=== PATIENT | male | born 1975 | race Hispanic/Latino ===

== ENCOUNTER 2016-06-03 13:07 | Emergency (ER) | payer OTHER ==
[2016-06-03 13:23] VITALS: TEMP 97.8
[2016-06-03] MEDS ORDERED: IBUPROFEN 200 MG TAB PO ONE (13:38)
--- NOTE | 2016-06-03 13:59 | RAD ---
Three view left fourth finger. Indication: LACERATION TO L RING FINGER Comparison: None. Impression: Laceration of the radial margin of the distal left fourth finger without radiopaque foreign body or fracture. Electronically signed by: Kaleb Gamble MD 06/03/2016 1:57 PM WORKDAY CONSULTANT
--- NOTE | 2016-06-03 14:06 | ED.PDOC ---
History of Present Illness - General Chief Complaint: Laceration Stated Complaint: finger laceration Time Seen by Provider: 06/03/16 13:37 Source: patient Exam Limitations: no limitations - History of Present Illness Initial Comments: 41 YO MALE PRESENTS TO THE ED WITH L 4TH DIGIT LACERATION SECONDARY TO A SCREW. PT DENIES ANY POSSIBILITY OF SUB CUTANEOUS FB. Timing/Duration: just prior to arrival Severity: mild Location: hands Improving Factors: nothing Worsening Factors: nothing Associated Symptoms: denies symptoms Allergies/Adverse Reactions: Allergies NO KNOWN ALLERGY Allergy (Verified 06/03/16 13:24) Home Medications: Ambulatory Orders Amoxicillin & Pot Clavulanate [Augmentin] 875 mg PO BID #20 tab 06/03/16 Review of Systems - Review of Systems Constitutional: Denies: chills, fever Musculoskeletal: Denies: joint pain, joint swelling Skin: Denies: lesions, rash Hematologic/Lymphatic: Denies: easy bleeding, easy bruising Past Medical History (General) - Patient Medical History Hx Asthma: No Hx Hypertension: No Hx Diabetes: No Surgical History: no surgical history - Vaccination History Hx Tetanus, Diphtheria Vaccination: - unknown Hx Influenza Vaccination: No - Social History Hx Tobacco Use: No Family Medical History - Family History Mother Family History: Unknown Living Status: Unknown Physical Exam - Physical Exam General Appearance: Alert, No apparent distress Eyes, Ears, Nose, Throat Exam: normal ENT inspection Neurologic: alert, normal mood/affect, oriented x 3 Skin Exam: warm/dry, normal color Skin Problem Location: upper extremities - 2CM LACERATION TO THE MEDIAL ASPECT OF THE L DISTAL 4TH DIGIT, NO ACTIVE BLEEDING, FLEXOR AND EXTENSOR TENDON FUNCTION INTACT Procedures - Laceration/Wound Repair Left Medial Distal Finger Wound Length (cm): 2 Wound's Depth, Shape: irregular Wound Explored: no foreign body removed Betadine Prep?: Yes Anesthesia: 1% Lidocaine Wound Repaired With: sutures Suture Size/Type: 4:0, nylon Number of Sutures: 4 Sterile Dressing Applied?: Yes Departure - Departure Clinical Impression: Puncture wound, Laceration Time of Disposition: 15:11 Disposition: Discharge to Home or Self Care Condition: Good Departure Forms: ED Discharge - Pt. Copy, Patient Portal Self Enrollment Instructions: DI for Puncture Wound, DI for Laceration Repair -- Simple Diet: resume usual diet Prescriptions: Amoxicillin & Pot Clavulanate [Augmentin] 875 mg PO BID #20 tab Home Medications: Ambulatory Orders Amoxicillin & Pot Clavulanate [Augmentin] 875 mg PO BID #20 tab 06/03/16 Additional Instructions: RETURN TO ED IN 7-10 DAYS FOR SUTURE REMOVAL
[2016-06-03] MEDS ORDERED: LIDOCAINE 1% 10 ML VIAL INJ ONE (14:50)
[2016-06-03] MEDS ORDERED: POVIDONE IODINE 10 % 15 ML UD TOP ONE (14:56)
[2016-06-03] MEDS ORDERED: TETANUS,DIPHTHERIA,PERTUSSIS 1 EA SYG IM ONE (15:09)
[2016-06-03] MEDS ORDERED: NEOMYCIN-BACITRACIN-POLYMYXIN 0.9 GM UD TOP ONE (15:09)
[2016-06-03] MEDS ORDERED: TETANUS-DIPHTHERIA TOXOIDS (TD 1 EA SYG IM ONE (15:10)
[2016-06-03 15:24] VITALS: BP 150/88; O2SAT 100
== END 2016-06-03 15:24 | disposition home or self-care (01) ==
LOC: ER 13:07
DX: S61.235A Puncture wound without foreign body of left ring finger without damage to nail, initial encounter (principal); Z23 Encounter for immunization; X58.XXXA Exposure to other specified factors, initial encounter